=== PATIENT | male | born 1960 | race Caucasian/White ===

== ENCOUNTER 2025-04-10 14:52 | Observation (INO) ==
[2025-04-10 16:24] LABS: Basophils # (Auto) 0.07 K/mcL (0.00-0.30); Basophils % (Auto) 0.8 % (0.0-2.0); Eosinophils # (Auto) 0.43 K/mcL (0.00-0.70); Eosinophils % (Auto) 5.1 % (0.0-7.0); Hematocrit 34.6 % (40.1-51.0); Hemoglobin 11.4 g/dL (13.7-17.5); Lymphocytes # (Auto) 1.29 K/mcL (1.50-4.80); Lymphocytes % (Auto) 15.4 % (15.5-49.0); Mean Corpuscular HGB Conc 32.9 g/dL (31.0-36.0); Monocytes # (Auto) 0.76 K/mcL (0.10-0.90); Monocytes % (Auto) 9.1 % (1.0-12.0); Neutrophils % (Auto) 69.5 % (38.0-78.0); Platelet Count 333 K/mcL (140-440); RBC 3.82 M/mcL (4.63-6.08); WBC 8.4 K/mcL (4.5-11.0)
[2025-04-10 16:39] LABS: Anion Gap 11.0 (8.0-16.0); Blood Urea Nitrogen 47 mg/dL (8-23); Calcium 9.5 mg/dL (8.6-10.4); Carbon Dioxide 22 mmol/L (22-30); Chloride 107 mmol/L (96-108); Glucose 107 mg/dL (70-105); Potassium 5.0 mmol/L (3.3-5.1); Sodium 140 mmol/L (133-145)
[2025-04-10 17:51] LABS: Bilirubin,Urine NEGATIVE (Negative); Color,Urine LT. YELLOW; Glucose,Urine (UA) NEGATIVE (Negative); Ketones,Urine NEGATIVE (Negative); Leukocyte Esterase,Urine NEGATIVE /uL (Negative); PH,Urine 6.0 (5.0-9.0); Protein,Urine NEGATIVE (Negative); Specific Gravity,Urine <= 1.005 (1.000-1.035); Urobilinogen,Urine 0.2 mg/dL
[2025-04-10 17:54] LABS: Albumin 4.4 gm/dL (3.2-5.2)
[2025-04-10 18:03] LABS: Creatinine, Spot Urine 43.2 mg/dL (39.0-259.0); Pro:Crea Ratio 0.14 (<0.20); Protein, Spot Urine < 6 mg/dL
[2025-04-10] MEDS: FUROSEMIDE 100 MG/10 ML VIAL IV SCH (19:48)
[2025-04-10] MEDS: TAMSULOSIN 0.4 MG CAPSULE PO ONE (19:48)
[2025-04-10] MEDS ORDERED: POLYETHYLENE GLYCOL 3350 17 GM PACKET PO PRN (20:02)
[2025-04-10] MEDS ORDERED: ONDANSETRON 4 MG/2 ML VIAL IV PRN (20:02)
[2025-04-10] MEDS ORDERED: SENNOSIDES 1 TABLET PO PRN (20:02)
[2025-04-10] MEDS ORDERED: CALCIUM CARBONATE 500 MG TAB.CHEW CHEWED PRN (20:02)
[2025-04-10] MEDS: MELATONIN 3 MG TABLET PO SCH (20:57)
[2025-04-10] MEDS: 0.9 % SODIUM CHLORIDE 10 ML SYRINGE IV SCH (20:58)
[2025-04-10] MEDS: TAMSULOSIN 0.4 MG CAPSULE PO SCH (20:58)
[2025-04-10] MEDS: ACETAMINOPHEN 325 MG TABLET PO PRN (22:17)
[2025-04-11 05:33] LABS: Basophils # (Auto) 0.06 K/mcL (0.00-0.30); Basophils % (Auto) 1.0 % (0.0-2.0); Eosinophils # (Auto) 0.41 K/mcL (0.00-0.70); Eosinophils % (Auto) 6.6 % (0.0-7.0); Hematocrit 32.0 % (40.1-51.0); Hemoglobin 10.6 g/dL (13.7-17.5); Lymphocytes # (Auto) 1.09 K/mcL (1.50-4.80); Lymphocytes % (Auto) 17.5 % (15.5-49.0); Mean Corpuscular HGB Conc 33.1 g/dL (31.0-36.0); Monocytes # (Auto) 0.51 K/mcL (0.10-0.90); Monocytes % (Auto) 8.2 % (1.0-12.0); Neutrophils % (Auto) 66.5 % (38.0-78.0); Platelet Count 275 K/mcL (140-440); RBC 3.54 M/mcL (4.63-6.08); WBC 6.2 K/mcL (4.5-11.0)
[2025-04-11 05:50] LABS: ALT/SGPT 14 U/L (<40); AST/SGOT 20 U/L (<40); Albumin 4.0 gm/dL (3.2-5.2); Albumin/Globulin Ratio 1.6 (1.0-2.3); Alkaline Phosphatase 53 U/L (39-117); Anion Gap 14.0 (8.0-16.0); Bilirubin,Total 0.4 mg/dL (0.1-1.0); Blood Urea Nitrogen 47 mg/dL (8-23); Calcium 9.5 mg/dL (8.6-10.4); Carbon Dioxide 20 mmol/L (22-30); Chloride 108 mmol/L (96-108); Globulin 2.5 gm/dL (2.2-3.7); Glucose 86 mg/dL (70-105); Potassium 4.5 mmol/L (3.3-5.1); Sodium 142 mmol/L (133-145)
[2025-04-11 15:13] LABS: Albumin 3.9 gm/dL (3.2-5.2); Anion Gap 12.0 (8.0-16.0); Blood Urea Nitrogen 46 mg/dL (8-23); Calcium 9.1 mg/dL (8.6-10.4); Carbon Dioxide 22 mmol/L (22-30); Chloride 104 mmol/L (96-108); Glucose 202 mg/dL (70-105); Phosphorous 4.5 mg/dL (2.5-4.5); Potassium 4.3 mmol/L (3.3-5.1); Sodium 138 mmol/L (133-145)
[2025-04-11] MEDS: HEPARIN 5,000 UNIT/ML VIAL SQ SCH (20:07)
[2025-04-12 05:53] LABS: Basophils # (Auto) 0.09 K/mcL (0.00-0.30); Basophils % (Auto) 1.2 % (0.0-2.0); Eosinophils # (Auto) 0.51 K/mcL (0.00-0.70); Eosinophils % (Auto) 6.7 % (0.0-7.0); Hematocrit 31.7 % (40.1-51.0); Hemoglobin 10.5 g/dL (13.7-17.5); Lymphocytes # (Auto) 1.41 K/mcL (1.50-4.80); Lymphocytes % (Auto) 18.4 % (15.5-49.0); Mean Corpuscular HGB Conc 33.1 g/dL (31.0-36.0); Monocytes # (Auto) 0.69 K/mcL (0.10-0.90); Monocytes % (Auto) 9.0 % (1.0-12.0); Neutrophils % (Auto) 64.6 % (38.0-78.0); Platelet Count 287 K/mcL (140-440); RBC 3.50 M/mcL (4.63-6.08); WBC 7.7 K/mcL (4.5-11.0)
[2025-04-12 06:15] LABS: ALT/SGPT 13 U/L (<40); AST/SGOT 16 U/L (<40); Albumin 4.0 gm/dL (3.2-5.2); Albumin/Globulin Ratio 1.8 (1.0-2.3); Alkaline Phosphatase 60 U/L (39-117); Anion Gap 11.0 (8.0-16.0); Bilirubin,Total < 0.2 mg/dL (0.1-1.0); Blood Urea Nitrogen 45 mg/dL (8-23); Calcium 8.8 mg/dL (8.6-10.4); Carbon Dioxide 23 mmol/L (22-30); Chloride 109 mmol/L (96-108); Globulin 2.2 gm/dL (2.2-3.7); Glucose 96 mg/dL (70-105); Potassium 4.2 mmol/L (3.3-5.1); Sodium 143 mmol/L (133-145)
[2025-04-12 06:16] LABS: Phosphorous 4.1 mg/dL (2.5-4.5)
== END 2025-04-12 12:55 | disposition home or self-care (01) ==
LOC: ED 14:52 → MEDSUR 14:52
PROVIDERS: ADMIT Student in an Organized Health Care Education/Training Program; ATTEND Student in an Organized Health Care Education/Training Program